=== PATIENT | female | born 1960 | race Hispanic/Latino ===

== ENCOUNTER 2017-08-21 14:58 | Emergency (ER) | payer OTHER ==
[2017-08-21 15:03] VITALS: BP 133/84; PULSE 90; RESP 16; TEMP 98.4; O2SAT 100
--- NOTE | 2017-08-21 15:29 | ED PDOC ---
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 Patient reports she was squatting to put air pressure on tire but was unable to get up. She felt like her calfs were trembling and states she had to crawl back inside her house to sat herself back down. She reports abrasions on legs as a result of the crawling outside and is currently unable to bear weight. She did not hear a pop or crack and denies any leg pain. No further medical complaints. (+) AOB PMD: Mani Overton - Knee Currently Unable To: Bear Weight Past Medical History Reviewed: Historical Data, Nursing Documentation, Vital Signs Vital Signs: Last Vital Signs Temp 98.4 F 08/21/17 15:00 Pulse 90 08/21/17 15:00 Resp 16 08/21/17 15:00 BP 133/84 08/21/17 15:00 Pulse Ox 100 08/21/17 15:00 - Medical History PMH: No Chronic Diseases - Family History Family History: States: Unknown Family Hx - Social History Current smoker - smoking cessation education provided: No Drugs: Denies - Allergies Allergies/Adverse Reactions: Allergies Allergy/AdvReac Type Severity Reaction Status Date / Time No Known Allergies Allergy Verified 08/21/17 15:00 Review of Systems ROS Statement: Except As Marked, All Systems Reviewed And Found Negative Musculoskeletal: Positive for: Other (bilateral knee weakness w/ abrasions). Negative for: Leg Pain Physical Exam - Reviewed Nursing Documentation Reviewed: Yes Vital Signs Reviewed: Yes - Physical Exam Appears: Positive for: Well (Alcohol on breath noted), Non-toxic, No Acute Distress Head Exam: Positive for: ATRAUMATIC, NORMAL INSPECTION, NORMOCEPHALIC Skin: Positive for: Normal Color, Warm, Dry Eye Exam: Positive for: Normal appearance Neck: Positive for: Normal, Painless ROM, Supple Respiratory: Negative for: Respiratory Distress Extremity: Positive for: Normal ROM (bilateral knees), Other (multiple superficial abrasions and contusions on bilateral knee caps). Negative for: Pedal Edema, Calf Tenderness, Deformity, Swelling Neurologic/Psych: Positive for: Alert, Oriented - ECG O2 Sat by Pulse Oximetry: 100 (RA) Pulse Ox Interpretation: Normal Medical Decision Making Medical Decision Making: Initial Impression: Knee pain Initial Plan: --Alcohol serum --Knee 3 views BI [RAD] --Duplex lower extremity vein bilat [US] 16:18 FINDINGS: BONES: Right Knee: Normal. No acute fracture. Left Knee: Normal. No acute fracture. JOINTS: Right Knee: There is mild degenerative osteoarthrosis in the medial compartment with reduced joint space. Left knee: There is mild degenerative osteoarthrosis in the medial compartment with reduced joint space. SOFT TISSUES: Right Knee: Normal. Left Knee: Normal. JOINT EFFUSION: Right Knee: None. Left Knee: None. OTHER FINDINGS: None. 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 No acute fracture or dislocation. 17:31 Extremity US FINDINGS: COMMON FEMORAL VEIN: Right CFV: Unremarkable. Left CFV: Unremarkable. SUPERFICIAL FEMORAL VEIN: Right SFV: Unremarkable. Left SFV: Unremarkable. POPLITEAL VEIN: Right Popliteal: Unremarkable. Left Popliteal: Unremarkable. POSTERIOR TIBIAL VEIN: Right PTV: Unremarkable. Left PTV: Unremarkable. OTHER FINDINGS: None. IMPRESSION: No evidence of deep venous thrombosis. ETOH 329 17:40 --Upon provider reevaluation patient is feeling better, ambulating around ED with Steady gait and is medically stable, and requires no further treatment in the ED at this time. Patient will be discharged home. Counseling was provided and all questions were answered regarding diagnosis. There is agreement to discharge plan. Return if symptoms persist or worsen. ~ Scribe Attestation: Documented by Ty Bennett, acting as a scribe for Pinky Phan PA-C. Provider Scribe Attestation: All medical record entries made by the Scribe were at my direction and personally dictated by me. I have reviewed the chart and agree that the record accurately reflects my personal performance of the history, physical exam, medical decision making, and the department course for this patient. I have also personally directed, reviewed, and agree with the discharge instructions and disposition. Disposition - Clinical Impression Clinical Impression: Knee pain, Alcohol intoxication - Patient ED Disposition Is Patient to be Admitted: No - Disposition Disposition: Routine/Home Disposition Time: 17:40 Condition: STABLE Instructions: Knee Pain (ED) Forms: [facility] ([place]) - POA Present On Arrival: None
--- NOTE | 2017-08-21 16:26 | RAD ---
PROCEDURE: Bilateral Knee Radiographs. HISTORY: b/l knee pain COMPARISON: None. FINDINGS: BONES: Right Knee: Normal. No acute fracture. Left Knee: Normal. No acute fracture. JOINTS: Right Knee: There is mild degenerative osteoarthrosis in the medial compartment with reduced joint space. Left knee: There is mild degenerative osteoarthrosis in the medial compartment with reduced joint space. SOFT TISSUES: Right Knee: Normal. Left Knee: Normal. JOINT EFFUSION: Right Knee: None. Left Knee: None. OTHER FINDINGS: None. 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 No acute fracture or dislocation.
--- NOTE | 2017-08-21 17:33 | US ---
PROCEDURE: Bilateral lower extremity venous duplex Doppler. HISTORY: r/o DVT COMPARISON: None available. TECHNIQUE: Bilateral common femoral, superficial femoral, popliteal and posterior tibial veins were evaluated. Flow was assessed with color Doppler, compressibility, assessment of phasic flow and augmentation response. FINDINGS: COMMON FEMORAL VEIN: Right CFV: Unremarkable. Left CFV: Unremarkable. SUPERFICIAL FEMORAL VEIN: Right SFV: Unremarkable. Left SFV: Unremarkable. POPLITEAL VEIN: Right Popliteal: Unremarkable. Left Popliteal: Unremarkable. POSTERIOR TIBIAL VEIN: Right PTV: Unremarkable. Left PTV: Unremarkable. OTHER FINDINGS: None. IMPRESSION: No evidence of deep venous thrombosis.
== END 2017-08-21 17:54 | disposition home or self-care (01) ==
LOC: H.ER 14:58
DX: M25.562 Pain in left knee (principal); M25.561 Pain in right knee; F10.129 Alcohol abuse with intoxication, unspecified; Y90.8 Blood alcohol level of 240 mg/100 ml or more